=== PATIENT | female | born 1960 | race Caucasian/White ===

== ENCOUNTER → 2021-12-26 | Outpatient (CLI) | payer MEDICARE ==
[~2021-12-26] MED LIST: AMITRIPTYLINE H75 MG PO; CEFUROXIME500 MG PO; NORVASC2.5 MG PO; OXYCONTIN15 MG PO; PAXIL40 MG PO; TOPROL XL50 MG PO; VALIUM 10 MG TA10 MG PO
== END ==
LOC: CT 11:50
DX: N93.9 Abnormal uterine and vaginal bleeding, unspecified (principal); R10.30 Lower abdominal pain, unspecified; E11.9 Type 2 diabetes mellitus without complications
CPT/HCPCS: 36415; 82565; 84520; Q9967

== ENCOUNTER 2022-03-05 19:27 | Emergency (ER) | payer MEDICARE ==
[2022-03-05 20:40] LABS: HEMOGLOBIN 10.5 gm/dl (12.3-15.3); RED BLOOD COUNT 3.82 M/UL (4.00-5.10); WHITE BLOOD COUNT 2.7 K/UL (4.5-11.0)
[2022-03-05 21:25] LABS: BUN/CREATININE RATIO 13 (0-10)
== END 2022-03-05 23:15 | disposition home or self-care (01) ==
LOC: ER1 19:27
PROVIDERS: Physician Assistant Medical
DX: I95.1 Orthostatic hypotension (principal); I10 Essential (primary) hypertension; F17.290 Nicotine dependence, other tobacco product, uncomplicated; R11.2 Nausea with vomiting, unspecified; I25.2 Old myocardial infarction; Z88.7 Allergy status to serum and vaccine; Z88.8 Allergy status to other drugs, medicaments and biological substances; Z85.41 Personal history of malignant neoplasm of cervix uteri
CPT/HCPCS: 70450; 71045; 73610; 80053; 81001; 82550; 82553; 84484; 85025; 87086; 93005; 96360; 99284